=== PATIENT | male | born 1950 | race Caucasian/White ===

== ENCOUNTER 2019-11-18 07:09 | Outpatient (NON) | payer MEDICARE, SELFPAY ==
[2019-11-18 19:16] LABS: SARS-CoV-2 RNA PCR Negative
== END 2019-11-18 07:10 ==
PROVIDERS: PCP Internal Medicine; Visit Provider Internal Medicine
DX: R68.89 Other general symptoms and signs (principal); Z20.828 Contact with and (suspected) exposure to other viral communicable diseases
CPT/HCPCS: 87635; C9803; U0003

== ENCOUNTER 2020-03-15 11:22 | Observation (INO) | payer MEDICARE, SELFPAY ==
[2020-03-15] VITALS (25 sets, daily range): BP systolic 134–173; BP diastolic 78–119; PULSE 60–106; RESP 10–19; TEMP 36.6–36.8; O2SAT 97–100; BMI 26.6
--- NOTE | ~2020-03-15 | CT_ITS ---
EXAMINATION: CTA brain carotid EXAM DATE: 03/15/2020 13:29 INDICATION: Dizziness . Difficult to moderate. TECHNIQUE: Noncontrast head CT. Spiral CTA of the carotid arteries was performed with intravenous i njection 100 cc of Omnipaque 350. Axial, coronal, sagittal reformatted images reviewed. Additional r eformatted images created on dedicated 3-D workstation. NASCET comparable standard used to assess th e degree of arterial stenosis. Spiral CT angiogram cerebral arteries performed with the same intrave nous injection of contrast. Source images of the brain CTA transferred to dedicated workstation for 3 -D rotational image creation. Coronal, sagittal maximum intensity pixel images also reviewed. The d ose-length product (DLP) for this examination was 1862.54 mGy-cm. The exposure was tailored accordi ng to patient size, and iterative reconstruction (ASIR) was used as additional dose reduction techniq ue. There is no prior study for comparison. FINDINGS: There is a small saccular aneurysm along the anterior aspect of the ascending aorta measuri ng 9 mm. Moderate right carotid bulb plaque accommodated by its natural dilation, 0% stenosis. On the left there is large amount of predominantly noncalcified left carotid bulb, 40% stenosis. The verteb ral arteries are codominant. There is right-sided posterior communicating artery dominant posterior c erebral artery. There is no carotid or vertebral basilar arterial dissection or fibromuscular dyspl sree. There are no cerebral artery aneurysms. There is symmetric cerebral artery arborization. The sa gittal, transverse and sigmoid sinuses enhance normally, no venous sinus thrombosis. Internal cerebra l veins also enhance normally. There is old left basal ganglia lacunar infarction. There is no acute intraparenchymal hemorrhage. No evidence of intraparenchymal brain mass lesion. No evidence of acute infarction. There is moderat e periventricular and subcortical hypodensity, nonspecific but probably related to small vessel ische temo disease. There is mild prominence of the sulci and ventricles related to cerebral atrophy. Th ere is intracranial carotid arteriosclerosis. There is no mass effect or midline shift. There is no obstructive hydrocephalus suspected. There are no extra-axial collections. There are no calvarial acute fractures. There is 9 mm right thyroid lobe nodule. Mid cervical disc disease. Sternotomy wires. IMPRESSION: 1. Ascending aortic saccular 9 mm aneurysm. 2. Left carotid bulb 40% stenosis. No right carotid stenosis. 3. Old left basal ganglia lacunar infarction. 4. Age-related intracranial findings. Reviewed, dictated and finalized at location B. O MACHINE OPERATOR
--- NOTE | ~2020-03-15 | XR_ITS ---
EXAMINATION: XR chest 1V portable DATE: 03/15/2020 12:08 INDICATION: Weakness. TECHNIQUE: frontal view of the chest was obtained. COMPARISON: Chest CT dated 03/30/2017 and chest radiograph dated 09/14/2012 FINDINGS: The lungs remain clear with no focal airspace opacities, pulmonary edema, pleural effusion or pneumot horax. The cardiomediastinal silhouette is normal. Median sternotomy wires and mediastinal surgical c lips are seen, likely from prior coronary artery bypass grafting. IMPRESSION: 1. No acute cardiopulmonary disease. Reviewed, dictated and finalized at location A. US RECRUITER
--- NOTE | ~2020-03-15 | CT_ITS ---
EXAMINATION: CT cervical spine [facility] EXAM DATE: 03/17/2020 15:01 INDICATION: neurological symptoms. TECHNIQUE: Spiral CT of the cervical spine was performed without contrast. Axial images were reviewe d. Coronal and sagittal reformatted images were also reviewed. The dose-length product (DLP) for thi s examination was 413.44 mGy-cm. The exposure was tailored according to patient size (auto mA exposu re control), and iterative reconstruction (ASIR) was used as additional dose reduction technique. ere is no prior study for comparison. FINDINGS: There is moderate to severe disc disease C4-7. The vertebral bodies are aligned in the AP dimension. There are no acute fractures identified. The odontoid process is intact. The lateral mass es of C1 line up with C2. Prevertebral soft tissue and pre-dens space are within normal limits. Level by level evaluation: C2-C3: Disc does not extend beyond the endplate margin. Uncovertebral joint arthropathy: None. Facet joint arthropathy: Mild bilateral. Neural foraminal stenosis: No stenosis. Central canal stenosis: No stenosis. C3-C4: There is a mild diffuse disc bulge. Uncovertebral joint arthropathy: Mild bilateral. Facet joint arthropathy: Moderate left, mild right. Neural foraminal stenosis: Mild left. Central canal stenosis: No stenosis. C4-C5: There is mild disc osteophyte complex. Uncovertebral joint arthropathy: Moderate bilateral. Facet joint arthropathy: Moderate left, mild to moderate right. Neural foraminal stenosis: Mild to moderate bilateral. Central canal stenosis: Mild. C5-C6: There is mild to moderate disc osteophyte complex. Uncovertebral joint arthropathy: Moderate to severe bilateral. Facet joint arthropathy: Mild bilateral. Neural foraminal stenosis: Moderate to severe left, moderate right. Central canal stenosis: Mild. C6-C7: There is mild disc osteophyte complex. Uncovertebral joint arthropathy: Severe left, moderate to severe right. Facet joint arthropathy: Mild bilateral. Neural foraminal stenosis: Severe left. Central canal stenosis: Mild. C7-T1: Disc does not extend beyond the endplate margin. Uncovertebral joint arthropathy: None. Facet joint arthropathy: Mild to moderate right, mild left. Neural foraminal stenosis: No stenosis. Central canal stenosis: No stenosis. IMPRESSION: 1. Moderate to severe cervical spondylosis. 2. No acute findings. Reviewed, dictated and finalized at location B. GRINDER
--- NOTE | 2020-03-15 11:39 | ECG_ITS ---
Measurements Intervals [place] Rate: 68 P: -6 NM: 154 QRS: 118 QRSD: 96 T: 156 QT: 415 QTc: 441 Interpretive Statements SINUS RHYTHM POSSIBLE LEFT ATRIAL ENLARGEMENT NONSPECIFIC T-WAVE ABNORMALITY- ANTEROLAT/HIGH LAT LEADS BASELINE ARTIFACT- I, II, III BORDERLINE ECG Electronically Signed On 03-15-2020 12:08:46 ACCOUNTANT TAX by Gary Peoples D.O.
[2020-03-15 11:52] LABS: Basophils Absolute Auto 0.1 K/mm3 (0.0-0.1); Basophils Percent Auto 0.8 % (0.2-1.2); Eosinophils Absolute Auto 0.1 K/mm3 (0-0.3); Eosinophils Percent Auto 1.5 % (0-4.4); Hematocrit 43.8 % (42.0-52.0); Hemoglobin 14.9 g/dL (14.0-18.0); Immature Granulocyte Absolute 0.03 K/mm3 (0.00-0.031); Immature Granulocyte Percent A 0.3 % (0-0.5); Lymphocytes Absolute Auto 1.72 K/mm3 (0.9-3.2); Lymphocytes Percent Auto 18.6 % (18.3-44.2); Mean Corpuscular Hemoglobin 31.3 pg (26-34); Mean Platelet Volume 8.6 fl (7.4-10.4); Monocytes Absolute Auto 0.8 K/mm3 (0.1-0.6); Monocytes Percent Auto 9.1 % (2.6-8.5); Neutrophils Absolute Auto 6.4 K/mm3 (1.3-6.7); Neutrophils Percent Auto 69.7 % (45.5-73.1); Platelet Count Result 219 k/mm3 (150-375); Red Blood Count 4.76 M/mm3 (4.6-6.20); Red Cell Distribution Width 13.9 % (11.5-14.5); White Blood Count 9.2 K/mm3 (4.5-10.0)
[2020-03-15 12:03] LABS: INR 0.9; Partial Thromboplastin Time 25.1 SECONDS (22.3-36.8); Prothrombin Time 13.1 Seconds (11.1-14.7)
[2020-03-15 12:04] LABS: Glucose Point of Care 85 (65-105)
[2020-03-15 12:56] LABS: Anion Gap 7 mmol/L (8-16); Blood Urea Nitrogen 15 mg/dL (9-20); Carbon Dioxide 27 mmol/L (22-30); Chloride 103 mmol/L (98-107); Estimated CRCL calculation 59 ml/min; Estimated Glomerular Filt Rate > 60; Glucose 99 mg/dL (75-110); Potassium 4.1 mmol/L (3.4-5.0); Sodium 137 mmol/L (137-145)
--- NOTE | 2020-03-15 12:59 | ED.GENADULT ---
HPI - General Adult General Chief complaint: Unspecified Stated complaint: issues with blood pressure medications Time Seen by Provider: 03/15/20 12:09 Source: patient History of Present Illness HPI narrative: Patient is a 70 y/o male complaining of moderate dizziness, unsteady gait since sometime yesterday. There is no alleviating or exacerbating factor. He feels weak in general, but he denies any focal weakness or numbness. He noticed his BP has been high. He states that he had bypass surgery done at [facility] over 10 years ago. Related Data Home Medications Medication Instructions Recorded Confirmed amlodipine 10 mg DAILY 03/15/20 03/15/20 benzonatate 100 mg PO DAILY 03/15/20 03/15/20 hydrochlorothiazide 12.5 mg DAILY 03/15/20 03/15/20 lisinopril 20 mg DAILY 03/15/20 03/15/20 metoprolol succinate 25 mg PO DAILY 03/15/20 03/15/20 Allergies Allergy/AdvReac Type Severity Reaction Status Date / Time No Known Allergies Allergy Unverified 11/06/14 14:26 Review of Systems Constitutional: Constitutional: Denies chills, Denies fever(s), Denies headache(s) and Denies weakness Eyes: Eyes: Denies blurry vision ENT: Denies headache(s) and Denies neck pain Cardiovascular: Cardiovascular: Denies chest pain and Denies dyspnea Respiratory: Respiratory: Denies cough and Denies dyspnea Gastrointestinal: Gastrointestinal: Denies abdominal pain, Denies diarrhea, Denies nausea and Denies vomiting Genitourinary: Genitourinary: Denies hematuria and Denies dysuria Musculoskeletal: Musculoskeletal: Denies back pain and Denies neck pain Neurologic: Reports dizziness, Denies headache(s), Reports lack of coordination, Denies focal weakness and Reports weakness PMFSH Social History Social History Smoking packs per day: 0.5 Smoking cigarettes per day: 10.0 Smoking status: Current every day smoker Tobacco type: cigarettes Alcohol intake: current Drinks per week: 1 Substance use: never Gender identity (if verbalized by the patient): Male Sexual Orientation (if Verbalized by the Patient): Straight or Heterosexual Spiritual care concerns: No Exam Const: General: no acute distress and well developed Orientation/consciousness: oriented to person, oriented to place, oriented to time and patient oriented x3 HENMT: Head: normocephalic Ears: external ears normal General nose exam: Normal external nose present Eyes: General: appearance normal, both eyes and all related structures Conjunctivae: conjunctivae normal Neck: Neck: normal visual inspection and full ROM Chest: Chest palpation & inspection: normal inspection of the chest and no tenderness Resp: Effort & Inspection: normal respiratory effort Auscultation: clear to auscultation bilaterally Cardio: Rate: regular rate Rhythm: regular rhythm GI: GI Palp: No abdominal tenderness and Yes Soft to palpation Skin: General skin exam: normal color and turgor normal Neuro: General: oriented to person, oriented to place, oriented to time and patient oriented x3 Cranial nerves: Yes CN's II-XII intact bilaterally Cognition (Neuro): normal cognition Speech: normal speech Motor exam (neuro): 5/5 motor strength present throughout Sensory Exam: normal sensation Coordination: cztqfc-tc-aenb test normal and idxy-oc-cdal test normal Extrem: General: normal to inspection, full ROM and no pedal edema Psych: Appearance: grossly normal Mental Status: mental status grossly normal Affect: normal affect Course Reevaluation(s) Reevaluation #1: Rechecked. Patient still feels dizzy. He states that he lives by himself and does not feel ready to go home. Date: 03/15/20 Time: 16:20 Consultations Consultation #1: Discussed with Dr. Infante (cardiothoracic surgery at [facility]), who states that aortic aneurysm is likely related to aortic cannulation during CABG surgery. He states that patient does not require transfer for that, but can fol
[2020-03-15 13:07] LABS: Troponin I 0.013 ng/mL (0.000-0.034)
--- NOTE | 2020-03-15 13:30 | PC.NURSE ---
patient in CT now.
--- NOTE | 2020-03-15 14:03 | PC.NURSE ---
patient back from CT. no change in condition. alert. oriented. on monitor. call light in reach.
[2020-03-15] MEDS: ASPIRIN 81 MG CHEWABLE TABLET PO (16:45)
[2020-03-15] MEDS: cloNIDine HCL 0.1 MG TABLET PO (17:04)
--- NOTE | 2020-03-15 17:06 | PC.NURSE ---
patient medicated as ordered. will order dinner tray. has ice water. has new urinal at bedside. patient aware of plan for admission upstairs.
--- NOTE | 2020-03-15 17:25 | PC.NURSE ---
patient medicated as ordered. patient given urinal. then with call light on. assisted to sit in chair at bedside. bed changed. tray ordered for patient. waiting for bed assignment.
--- NOTE | 2020-03-15 17:48 | PC.NURSE ---
SBAR completed and faxed and tubed to 3rd floor.
--- NOTE | 2020-03-15 18:07 | PC.NURSE ---
report received from Kathia DAVE
--- NOTE | 2020-03-15 18:11 | PC.NURSE ---
report given to RN on 2nd floor. will transfer to 341 shortly.
--- NOTE | 2020-03-15 18:47 | ADMGEN ---
This patient, Jessa Goetz, was admitted to Medical Room 341-01. Patient/family oriented to hospital policies and general routines including ID bracelet, bed and alarms, visiting hours, pain management, procedures, bathroom and other care routines, personal items, smoking policy, room service/diet, and visiting hours. Placed on tele per MD orders, reviewed plan of care. Information on how to activate the Rapid Response Team has been discussed. Patient/Family are encouraged to report perceived risks to care and to ask questions if they do not understand what they are told or what they should do.
[2020-03-15 20:09] LABS: Glucose Point of Care 142 (65-105)
--- NOTE | 2020-03-15 20:13 | PC.NURSE ---
call to [facility] in [place] [address] to confirm home meds
--- NOTE | 2020-03-15 22:45 | PM.IMHP ---
H&P: HPI History of Present Illness Date/Time: 03/15/20 22:45 Chief complaint: Neurological symptoms. Narrative: Jessa Goetz is a 70-year-old male with coronary artery disease, peripheral vascular disease, hypertension, hyperlipidemia, and history of moderate aortic stenosis on echocardiogram in March 2017 who presented to the emergency department earlier today via private vehicle from home for evaluation of neurological symptoms. He is not very good historian and has a difficult time describing the symptoms which prompted him to come to the emergency department today, but it sounds like he was in his usual state of health on Sunday evening. When he awoke on Sunday morning he was just not feeling right, with generalized weakness to the point where I could hardly move. For some reason he thought perhaps he was having a reaction to 1 of his blood pressure medications, but he goes on to say that he has not been prescribed any new medications recently, perhaps 3 months ago or so. He denies that he could have accidentally taken extra medication, and he states compliance with his medication however I am wondering if that is true or not. In any regard, it seems like he felt unwell most of the weekend, but he was able to drive back to [place] (he lives in [place]) for work. With further questioning he reports feelings of being off balance, but specifically denies feeling lightheaded and he also tells me he is not having vertigo. Due to the poor balance, he sustained a fall on Sunday morning in the bathroom, but he landed on his buttocks and did not injure himself. I asked him to describe his walk however he tells me he has not really walked today thus he cannot say for certain. He got up to the side of the bed to use the urinal and was steady at that time, but did not wish to walk. He reported to the triage nurse that he was having difficulties writing however denied that to me at this time. Brain CT today showed evidence of an old stroke, of which he was unaware. Currently he feels back to his normal state and specifically denies headache, neck ache, auditory and visual changes, focal weakness, paresthesias, facial droop, and dysarthria. He has no history of cardiac dysrhythmia. Review of Systems Review of Systems: Narrative: Twelve systems were reviewed with pertinent positives and negatives as per HPI. No fever, chills, or sweats. He goes on to say that he was having subjective fevers and muscle aches from a blood pressure medication that he was prescribed a couple of months ago, and his doctor told him to just take half dose but he still has some symptoms of that. He denies cold and flu symptoms. No exposure to those positive for COVID-19. He denies sick contacts. No chest pain, pleuritic pain, palpitations, or shortness of breath. No cough. He denies diarrhea and constipation. No dysuria or hematuria. He does have sleep apnea but is intolerant to the CPAP. He admits that he will sometimes wake up at night gasping for air and reports daytime somnolence. Except as documented, all other systems were reviewed and are negative. ON LICENSE OF [facility] Past Medical History Medical History (Updated 03/16/20 @ 00:00 by Zina Alvares PA-C) Ascending aortic aneurysm 9 mm ascending aortic saccular aneurysm noted on CT dated 03/15/2020. His cardiothoracic surgeon feels that it was likely related to cannulation of the aorta during bypass. Cerebrovascular accident Old left basal ganglia lacunar infarction noted on brain CT dated 03/15/2020. Colon polyps Coronary artery disease Status post 5 vessel bypass at [facility] in [place]. Grade II diastolic dysfunction On echocardiogram in March 2017. Hyperlipidemia Hypertension Kidney stones Moderate aortic stenosis Noted on echocardiogram in March 2017. Obstructive sleep apnea Intolerant to CPAP. Peripheral vascular disease Prostate cancer Status post prostatectomy. Tobacco dependence Surgical
[2020-03-16] VITALS (14 sets, daily range): BP systolic 119–157; BP diastolic 75–97; PULSE 58–71; RESP 12–18; TEMP 36.2–36.8; O2SAT 95–99
--- NOTE | 2020-03-16 00:02 | ECHO_ITS ---
Patient Info Name: Jessa Goetz Age: 70 years : 1950 Gender: Male Ht: 71 in Wt: 191 lbs BSA: 2.10 m2 HR: 62 bpm BP: 149 / 92 mmHg Heart Rhythm: Sinus Rhythm Technical Quality: Good Exam Date: 03/16/2020 9:37 AM Exam Location: [facility] Patient Status: Inpatient Admit Date: 03/15/2020 Staff Ordering Physician: Zina Alvares PA-C Mercury Purifier: Cecil Hale RDCS Attending Provider: Martha Maynard PA-C Referring Physician: Dia SAHU; Exam Type: CA echo dop color flow w con Study Info Indications I35.0 - Nonrheumatic aortic (valve) stenosis Complete two-dimensional, color flow and Doppler transthoracic echocardiogram is performed with contrast to opacify the left ventricle and to improve the deliniation of the left ventricle endocardial borders. Contrast/Agitated Saline Contrast/Ag. Saline: Definity Amount: 3.00 ml Administered By: Gaye Hayden RN Existing IV Access: Yes History/Risk Factors Neurological symptoms; aortic stenosis, murmur, HTN, CAD s/p 5v CABG \R\12 years ago. Summary 1. Left ventricular chamber dimension is normal. 2. Definity contrast administered improved wall motion interpretation. 3. Left ventricular systolic function is normal, estimated at 55-60%. 4. There is mildly increased left ventricular wall thickness. 5. The left ventricular diastolic function is grade I diastolic dysfunction. 6. E/e' 11 is mildly elevated. 7. Left atrial chamber dimension is moderately enlarged. 8. There is severe aortic valve sclerosis. 9. There is severe aortic valve stenosis with a peak velocity of 484.60 cm/s, mean gradient of 44 mmHg, and aortic valve area of 0.61 cm2. 10. There is mild aortic valve regurgitation. 11. The mitral valve has severely calcified annulus. Left Ventricle E/e' 11 is mildly elevated. Definity contrast administered improved wall motion interpretation. Left ventricular chamber dimension is normal. Left ventricular systolic function is normal, estimated at 55-60%. There is mildly increased left ventricular wall thickness. The left ventricular diastolic function is grade I diastolic dysfunction. Right Ventricle Right ventricular chamber dimension is normal. Right ventricular systolic function is normal. Left Atria Left atrial chamber dimension is moderately enlarged. Right Atria Right atrial chamber dimension is normal. Aortic Valve The aortic valve is probable trileaflet. There is severe aortic valve sclerosis. There is severe aortic valve stenosis with a peak velocity of 484.60 cm/s, mean gradient of 44 mmHg, and aortic valve area of 0.61 cm2. There is mild aortic valve regurgitation. Pulmonic Valve There is no pulmonic regurgitation. Mitral Valve The mitral valve has severely calcified annulus. There is no mitral valve stenosis. There is no mitral valve regurgitation. Tricuspid Valve There is no tricuspid valve regurgitation. Pericardium/Pleural There is no pericardial effusion. Inferior Vena Cava Normal inferior vena cava with >50% collapse upon inspiration consistent with normal right atrial pressure, 5 mmHg. Aorta The aortic root size at the sinus of Valsalva is normal. Left Ventricular Outflow Tract Name Value Normal
[2020-03-16 05:56] LABS: Hemoglobin 13.5 g/dL (14.0-18.0); Mean Corpuscular HGB Conc 33.8 g/dl (32-36); Mean Corpuscular Hemoglobin 30.3 pg (26-34); Mean Corpuscular Volume 89.7 fl (80-100); Platelet Count Result 210 k/mm3 (150-375); Red Blood Count 4.46 M/mm3 (4.6-6.20); Red Cell Distribution Width 13.5 % (11.5-14.5); White Blood Count 7.4 K/mm3 (4.5-10.0)
[2020-03-16 06:24] LABS: Alanine Aminotransferase 12 U/L (4-50); Albumin Level 3.6 g/dL (3.5-5.1); Alkaline Phosphatase 51 U/L (38-126); Anion Gap 5 mmol/L (8-16); Aspartate Amino Transferase 22 U/L (17-59); Bilirubin,Total 0.8 mg/dL (0.2-1.3); Blood Urea Nitrogen 16 mg/dL (9-20); Calcium 8.6 mg/dL (8.4-10.2); Carbon Dioxide 27 mmol/L (22-30); Chloride 106 mmol/L (98-107); Cholesterol 261 mg/dL (0-200); Estimated CRCL calculation 59 ml/min; Estimated Glomerular Filt Rate > 60; Glucose 97 mg/dL (75-110); HDL Direct 46 mg/dL; Magnesium 2.3 mg/dL (1.6-2.3); Potassium 3.7 mmol/L (3.4-5.0); Sodium 138 mmol/L (137-145); Triglycerides 160 mg/dL (<150)
[2020-03-16 06:35] LABS: LDL Cholesterol Direct 165 mg/dL
[2020-03-16 07:28] LABS: Folic Acid 9.5 ng/mL (2.76->20)
[2020-03-16] MEDS: CYANOCOBALAMIN INJ 1,000 MCG/ML VIAL 1000 MCG IM (08:49)
[2020-03-16] MEDS: METOPROLOL SUCCINATE EXT REL 25 MG TABCR PO (08:50)
[2020-03-16] MEDS: ASPIRIN 81 MG ENTERIC TABLET PO (08:50)
[2020-03-16] MEDS: amLODIPine BESYLATE 5 MG TABLET 10 MG PO (08:50)
[2020-03-16] MEDS: hydroCHLOROthiazide 12.5 MG CAPSULE BY MOUTH (08:50)
[2020-03-16] MEDS: lisinopriL 20 MG TABLET PO (08:50)
[2020-03-16] MEDS: ATORVASTATIN 40 MG TABLET PO (08:51)
[2020-03-16] MEDS: PERFLUTREN LIPID MICROSPHERES 1.5 ML VIAL DILUTED TO 10 ML TOTAL VOLUME IV PUSH (10:00)
--- NOTE | 2020-03-16 10:58 | PM.IMPN ---
Progress Note: A&P Assessment and Plan (1) Neurological symptoms: Code(s): R29.90 - Unspecified symptoms and signs involving the nervous system Status: Acute Assessment and Plan: Etiology is unclear. His symptoms were poorly described but he noted feeling off balance. Orthostatic vitals were negative for orthostatic hypotension. CTA head/neck showed an old left basal ganglia lacunar infarction without evidence of acute hemorrhage, mass lesion, or infarction. There is 40% left ICA stenosis and no right carotid stenosis. Echocardiogram shows normal LV systolic function, mildly increased LV wall thickness, grade 1 diastolic dysfunction, moderate left atrial enlargement, and severe aortic stenosis and sclerosis. The patient reports that his symptoms have resolved completely and he is no longer feeling off balance. He thinks his symptoms were an adverse reaction to his antihypertensives. Brain MRI is still pending due to his hx of femoral to femoral bypass. Records were requested from [facility] and further information regarding the bypass is needed. Continue ASA. Neurology was consulted. Appreciate neurology input. Plan for PT/OT evaluation. (2) Aortic stenosis: Code(s): I35.0 - Nonrheumatic aortic (valve) stenosis Status: Acute Assessment and Plan: Severe on echocardiogram performed 03/16/20 with peak velocity of 484.60cm/s, mean gradient of 44 mmHg, and aortic valve area of 0.61 cm2. He states that he is not currently established with cardiology. He did have CABG at [facility] at least 10 years ago but states he is not following with cardiology regularly. Plan to consult cardiology for further input which is greatly appreciated. Await cardiology recommendations. (3) Hypertension: Qualifiers: Hypertension type: unspecified Qualified Code(s): I10 - Essential (primary) hypertension Code(s): I10 - Essential (primary) hypertension Status: Acute Assessment and Plan: Blood pressures were elevated initially but have subsequently normalized. Most recent BP was 140/89. Continue prior to admission amlodipine. He stated that he was not taking his hydrochlorothiazide, metoprolol, and lisinopril. Continue to monitor. (4) Ascending aortic aneurysm: Code(s): I71.2 - Thoracic aortic aneurysm, without rupture Status: Acute Assessment and Plan: The patient's cardiothoracic surgeon, Dr. Nicole from [facility], stated that the ascending aortic saccular 9 mm aneurysm was likely due to aortic cannulation during CABG and recommends outpatient follow-up. He will need to establish an outpatient appointment after discharge. (5) Obstructive sleep apnea: Code(s): G47.33 - Obstructive sleep apnea (adult) (pediatric) Status: Chronic Assessment and Plan: Chronic. CPAP will be available for titration to home settings while inpatient. (6) Coronary artery disease: Code(s): I25.10 - Atherosclerotic heart disease of [place] coronary artery without angina pectoris Status: Chronic Assessment and Plan: Chronic. The patient is not having angina. Continue ASA, crestor,and metoprolol. (7) Tobacco dependence: Code(s): F17.200 - Nicotine dependence, unspecified, uncomplicated Status: Chronic Assessment and Plan: I discussed the importance of smoking cessation with the patient at length today. He verbalized understanding regarding the importance of smoking cessation given his hx of atherosclerotic vascular disease and risk for adverse cardiovascular outcomes including . Subjective Date/time seen: 03/16/20 10:58 Mr. Goetz is a 70 y.o. male with PMH significant for CAD s/p CABG, ascending aortic aneurysm, CVA, HLD, HTN, aortic stenosis, THOMPSON, and current tobacco dependence who is seen in follow-up for poorly described neurological symptoms including feeling off balance resulting in a subsequent fall Sunday morning. His
--- NOTE | 2020-03-16 11:45 | WPDNEURCNPN ---
Assessment and Plan Assessment and plan (1) Aortic stenosis: Code(s): I35.0 - Nonrheumatic aortic (valve) stenosis Status: Acute (2) Neurological symptoms: Code(s): R29.90 - Unspecified symptoms and signs involving the nervous system Status: Acute (3) Ascending aortic aneurysm: Code(s): I71.2 - Thoracic aortic aneurysm, without rupture Status: Acute (4) Gait instability: Code(s): R26.81 - Unsteadiness on feet Status: Acute Additional Plan CTA is negative for the carotid disease except the documentation of the ascending aortic saccular aneurysm would recommend to obtain the physical therapy evaluation Consult date: 03/17/20 Time Seen: 11:45 HPI: Jessa Goetz is a 70 year old male 70 years old right-handed male has been admitted to [facility] through the emergency room where he was brought by the private vehicle from home for the evaluation of neurological symptoms he was not very good historian and had difficult time describing the symptom which prompted him to come to the emergency room. As per the information available when he woke on Sunday morning he was just not feeling right felt weak was difficult to move he was not given any new medications but was not sure whether he had taken extra medication he was off balance lightheaded and vertiginous ears landed on his buttocks because of the lack of balance a day before but by the time he was seen by the physician on the floor he was feeling better he has ongoing history of ascending aortic aneurysm cerebrovascular accident with involvement of the left basal ganglia on CT scan in March of 2020 moderate aortic stenosis obstructive sleep apnea and peripheral vascular disease Review of Systems Review of Systems: All systems reviewed & are unremarkable except as noted in HPI and below [facility] Past Medical History Medical History Ascending aortic aneurysm 9 mm ascending aortic saccular aneurysm noted on CT dated 03/15/2020. His cardiothoracic surgeon feels that it was likely related to cannulation of the aorta during bypass. Cerebrovascular accident Old left basal ganglia lacunar infarction noted on brain CT dated 03/15/2020. Colon polyps Coronary artery disease Status post 5 vessel bypass at [facility] in [place]. Grade II diastolic dysfunction On echocardiogram in March 2017. Hyperlipidemia Hypertension Kidney stones Moderate aortic stenosis Noted on echocardiogram in March 2017. Obstructive sleep apnea Intolerant to CPAP. Peripheral vascular disease Prostate cancer Status post prostatectomy. Tobacco dependence Surgical History Surgical History (System 03/16/20 @ 12:47 by Ellyn Leonardo) History of coronary artery bypass graft Five vessel bypass. History of lithotripsy History of prostatectomy History of tonsillectomy History of vascular surgery Femoral bypass. Family History Family History Father Cerebrovascular accident Heart disease Mother Cancer of female genitourinary tract Mother Family history of malignant neoplasm of uterus Other Family history of cardiovascular disease Social History Social History Smoking packs per day: 0.5 Smoking cigarettes per day: 10.0 Smoking status: Current every day smoker Tobacco type: cigarettes Alcohol intake: current Drinks per week: 1 Substance use: never Gender identity (if verbalized by the patient): Male Sexual Orientation (if Verbalized by the Patient): Straight or Heterosexual Spiritual care concerns: No Meds Home Medications and Allergies Home Medications Medication Instructions Recorded Confirmed Type rosuvastatin 20 mg tablet 20 mg PO DAILY #30 tablet 09/09/19 03/17/20 Rx aspirin 81 mg tablet,delayed 81 mg PO DAILY #30 tablet 12/18/19 03/17/20 Rx releas
--- NOTE | 2020-03-16 16:58 | PC.NURSE ---
Received records from [facility] in regards to the operative note for the femoral bypass. There was not enough information about the graft for them to do the MRI. [facility] records was paged to try to get more info, Ivanna AGUILAR notified.
[2020-03-17] VITALS (9 sets, daily range): BP systolic 127–162; BP diastolic 77–94; PULSE 64–72; RESP 15–16; TEMP 36.2; O2SAT 97–98
[2020-03-17] MEDS: amLODIPine BESYLATE 5 MG TABLET 10 MG PO (09:11)
[2020-03-17] MEDS: ROSUVASTATIN 10 MG TABLET 20 MG PO (09:12)
[2020-03-17] MEDS: ASPIRIN 81 MG ENTERIC TABLET PO (09:12)
--- NOTE | 2020-03-17 10:21 | PM.CNCAR ---
Assessment and Plan Assessment and plan (1) Coronary artery disease: Code(s): I25.10 - Atherosclerotic heart disease of [place] coronary artery without angina pectoris Status: Chronic Assessment and Plan: five-vessel CABG. Unknown details. Continue aspirin, rosuvastatin. will start metoprolol tartrate 25 mg p.o. b.i.d.. Hold hydrochlorothiazide. Reduce amlodipine to 5 mg daily. No diuretics. (2) Ascending aortic aneurysm: Code(s): I71.2 - Thoracic aortic aneurysm, without rupture Status: Acute Assessment and Plan: 9 mm saccular aneurysm (3) Aortic stenosis: Code(s): I35.0 - Nonrheumatic aortic (valve) stenosis Status: Acute Assessment and Plan: critical. No diuretics. He is instructed not to lift any heavy objects or perform any exercise for the time being. He is encouraged to stay hydrated. He needs workup for aortic valve replacement. I talked him about the process and potential for TAVR versus SAVR. He wishes not to have cardiac workup performed here. When given options, he is agreeable to see physicians at [facility]. Will refer him to Dr. Collins and Shannan. will schedule him a left and right heart catheterization was [facility]. Will also need a transesophageal echocardiogram, CT scan chest as part of standard workup. (4) Essential hypertension: Code(s): I10 - Essential (primary) hypertension Status: Acute Assessment and Plan: above goal (5) Tobacco abuse: Code(s): Z72.0 - Tobacco use Status: Acute Assessment and Plan: smoking cessation counseling was performed (6) Obstructive sleep apnea: Code(s): G47.33 - Obstructive sleep apnea (adult) (pediatric) Status: Chronic Assessment and Plan: intolerant to CPAP (7) Hyperlipidemia: Code(s): E78.5 - Hyperlipidemia, unspecified Status: Acute Assessment and Plan: Continue rosuvastatin (8) Neurological symptoms: Code(s): R29.90 - Unspecified symptoms and signs involving the nervous system Status: Acute Assessment and Plan: this could be related to hypotension related to his severe/ critical aortic stenosis. History of Present Illness History of Present Illness Consult date/time: 03/17/20 10:21 Requesting physician: Asaturian,Martha E., PA-C Consult reason: aortic stenosis Reason For Visit: Neurological symptoms. Narrative: date of service 03/17/2020 Reason for consultation: Aortic stenosis History: Patient is a 70-year-old male with history of coronary disease and underwent a multivessel CABG about 10-12 years ago at [facility]. He had seen Dr. Reyes at that time but has not been seen by cycling instructor routinely since his departure. Patient does have a known history of aortic stenosis. He has not had any significant cardiac evaluation though and 3+ years. He came to hospital because of a state of altered mental status. He took his standard pills Sunday night and then woke up Sunday not feeling very well. He states that he could not walk, felt confused and lethargic. This persisted all weekend. He had no focal abnormalities except for some slurred speech. He did have some loss of balance. This occurred after he stood up and this did prompt him to go to the emergency department for further evaluation. He did have a CT scan of brain which showed an old infarction but nothing new. He was also found to have a saccular aneurysm in his thoracic aorta. Echocardiogram was ordered because of a very loud harsh murmur as well as his symptoms. Echocardiogram showed critical aortic stenosis with valve area 0.6 centimeter squared. consultation was therefore requested. Patient denies any chest pain, shortness of breath, syncope, paroxysmal nocturnal dyspnea, orthopnea or palpitations. No significant edema. Review of Systems Review of Systems: All systems reviewed & are unremarkable except as n
[2020-03-17] MEDS: METOPROLOL TARTRATE 25 MG TABLET PO (12:10)
--- NOTE | 2020-03-17 14:26 | PM.DS ---
DS: Admitting Diagnosis Admitting Diagnosis Admitting Diagnosis: Neurological symptoms. DS: Discharge Diagnosis Discharge Diagnosis (1) Neurological symptoms: Code(s): R29.90 - Unspecified symptoms and signs involving the nervous system Status: Acute Assessment and Plan: Discharge Summary (Date of service 03/17/20): Mr. Goetz is a 70 y.o. male with PMH significant for hypertension, CAD s/p five-vessel CABG at [facility] [place] at least 10 years ago, aortic stenosis, THOMPSON, hyperlipidemia, and tobacco dependence who presented to the emergency department for vague neurological symptoms including generalized weakness and feeling off balance. On arrival, blood pressure was elevated. Vitals were otherwise stable. Initial workup in the emergency department included CT brain which showed old left basal ganglia lacunar infarction, CTA head/neck which showed ascending aortic saccular 9mm aneurysm, 40% stenosis of the left carotid and no significant right carotid stenosis. Labs were unremarkable. He was admitted for further workup due to concern for possible CVA/TIA. Dr. Arango with neurology was consulted. MRI was ordered but was not able to be performed at our facility due to the presence of a peripheral bypass graft. The surgery was performed at [facility] and records were requested but we were unable to obtain information on the exact type of graft used, thus he could not have MRI here. Dr. Arango was advised and noted that he was okay for him not to have the MRI at this time. He will need to follow-up with neurology outpatient to determine if further imaging will be warranted. He had no residual deficits and his symptoms resolved completely. He was not taking his rosuvastatin so I advised that he must take this and his ASA as his CT brain did show an old lacunar infarction in the basal ganglia which he was unaware of. Neurology recommend CT cervical spine which showed moderate to severe cervical spondylosis. Echocardiogram was performed and showed normal LV systolic function, mildly increased LV wall thickness, grade 1 diastolic dysfunction, moderate left atrial enlargement, and severe aortic stenosis and sclerosis. It is possible that his severe aortic stenosis may have caused hypotension which resulted in his symptoms of generalized weakness and feeling off balance. Physical and occupational therapy evaluated the patient and he was felt to be functioning well at baseline with no need for continued PT/OT. He was advised that he will require aortic valve replacement and he was referred to [facility] by our cardiology team to have the standard workup and valve replacement. His blood pressure medications were adjusted and diuretics must be avoided. He was placed on activity restrictions. He was discharged in stable condition on the afternoon of 03/18/20. (2) Aortic stenosis: Code(s): I35.0 - Nonrheumatic aortic (valve) stenosis Status: Acute Assessment and Plan: Severe on echocardiogram performed 03/16/20 with peak velocity of 484.60cm/s, mean gradient of 44 mmHg, and aortic valve area of 0.61 cm2. He was seen by cardiology. He will need aortic valve replacement and he wanted to pursue cardiac workup at [facility] after discussion with Dr. Sorensen. He will need a left and right heart catheterization, KEESHA, and CT chest for the standard workup and he was referred to Dr. Collins and Shannan to have this accomplished. He was advised to call Dr. Sorensen's office if he does not hear from [facility] by 03/25/20. He verbalized understanding with the importance of follow-up. He was advised that he cannot perform any heavy lifting or strenuous activity. 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 He was provided a work note with his activity restrictions. (3) Hypertension: Qualifiers: Hypertension type: unspecified Qualified Code(s): I10 - Essential (primary) hypertension Code(s): I10 -
--- NOTE | 2020-03-17 15:47 | PC.NURSE ---
Ivanna Maynard notified that pt was diving himself home. Ivanna was okay with this and stated to reinforce no strenuous activity.
== END 2020-03-17 15:45 | disposition home or self-care (01) ==
LOC: ANHED 16:56 → ANH3MED 17:30
PROVIDERS: Physician Assistant; Admitting Provider Internal Medicine; Emergency Provider Emergency Medicine; PCP Internal Medicine; Visit Provider Family Medicine
DX: R41.82 Altered mental status, unspecified (principal); R53.1 Weakness; I71.2 Thoracic aortic aneurysm, without rupture; I35.0 Nonrheumatic aortic (valve) stenosis; I34.0 Nonrheumatic mitral (valve) insufficiency; I10 Essential (primary) hypertension; I25.10 Atherosclerotic heart disease of native coronary artery without angina pectoris; I73.9 Peripheral vascular disease, unspecified; E78.5 Hyperlipidemia, unspecified; F17.210 Nicotine dependence, cigarettes, uncomplicated; G47.33 Obstructive sleep apnea (adult) (pediatric); R26.81 Unsteadiness on feet; W19.XXXA Unspecified fall, initial encounter; Z95.1 Presence of aortocoronary bypass graft; Z86.73 Personal history of transient ischemic attack (TIA), and cerebral infarction without residual deficits; Z85.46 Personal history of malignant neoplasm of prostate; Z90.79 Acquired absence of other genital organ(s); Z79.82 Long term (current) use of aspirin; Z79.899 Other long term (current) drug therapy
CPT/HCPCS: 36415; 70496; 70498; 71045; 72125; 80048; 80053; 80061; 82607; 82746; 82948; 83735; 84443; 84484; 85025; 85027; 85610; 85730; 93005; 96372; 96374; 97161; 97165; 99285; A9270; C8929; G0378; J3420; Q9957; Q9967

== ENCOUNTER 2020-06-29 08:18 | Outpatient (CLI) | payer MEDICARE, SELFPAY ==
--- NOTE | ~2020-06-29 | US_ITS ---
EXAMINATION: US art doppler w press LE BI DATE: 06/29/2020 09:16 INDICATION: Peripheral vascular disease. Prior arterial stenting in the right lower limb. TECHNIQUE: Segmental pressures and plethysmographic and Doppler waveforms of the brachial and lower e xtremity arteries were obtained. COMPARISON: None. FINDINGS: Right and left brachial artery pressures of 156 mm Hg and 151 mm Hg, respectively, are concordant (no rmal difference <= 30 mmHg). The right ankle-brachial index (BRINDA) is 1.00 (normal >= 0.9-1). Arterial waveforms are biphasic with brisk systolic upstrokes throughout the arteries of the right lower limb. The left BRINDA is 0.95. Arterial waveforms are biphasic with brisk systolic upstrokes throughout the le ft lower limb.. IMPRESSION: 1. Normal right BRINDA and borderline but still normal left BRINDA. No significant occlusive disease. Reviewed, dictated and finalized at location A. RMATICA ARCHITECT IMPRESSION: 1. Normal right BRINDA and borderline but still normal left BRINDA. No significant oc clusive disease.
== END 2020-06-29 08:19 | disposition home or self-care (01) ==
LOC: ANHIMG 08:23
PROVIDERS: Family Provider Internal Medicine; PCP Internal Medicine; Visit Provider Internal Medicine Cardiovascular Disease
DX: I73.9 Peripheral vascular disease, unspecified (principal)
CPT/HCPCS: 93923

== ENCOUNTER 2020-07-27 07:30 | Outpatient (RCR) | payer MEDICARE, SELFPAY ==
--- NOTE | 2020-06-14 10:49 | PTOPEVAL ---
Thank you for referring Jessa Goetz to [facility].? The patient is scheduled to be seen for therapy? 1 x/week for 4-6 weeks. Please review, sign, date and return this plan of care JUDAH. I agree with and certify that the following plan of care is medically necessary. Referring Physician Date Attending Provider: Deshaun Santos DO *PT Outpatient Evaluation Start: 06/14/20 Therapy Assessment Status Assessment Status Evaluation Evaluation Information Problem Diagnosis leg weakness Cause medication per pt Additional Evaluation Detail 1 fall 2 months ago, Mar 2020. He went to the hospital and was admitted for 3 days. He had surgery 04/22/20 for heart valve replacement. He does not feel the surgery made him weaker. He has cut down on his smoking, but he is not going to quit. Subjective Information He feels his leg weakness is Query Text:As Reported By Patient/ due to his BP medication. He Family also c/o limitations with walking longer distances. He does not perform a regular walking program or exercise program. 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 He spends a lot of time on his feet, walking. He denies difficulty performing work activities. Denies problems with performing household activities. He reports he is able to perform required lifting task for work. He reports having feeling of decreased balance outside on soft surfaces. Pain Assessment Timing of Pain Assessment Timing of Pain Assessment Assessment Self Report Self Report Pain Level 0 Pain Score Pain Score 0: Self Report Lower Extremity Muscle Strength Testing Hip Strength Bilateral Hip Flexion Strength 5 Normal Hip Extension Strength 4- Good - Hip Abduction Strength 3 Fair Knee Strength Bilateral Knee Flexion Strength 4- Good - Knee Extension Strength 4+ Good + Ankle Strength Bilateral Ankle Dorsiflexion Strength 5 Normal Ankle Plantarflexion Strength 3 Fair Ankle Eversion Strength 5 Normal Ankle Inversion Strength 5 Normal Ankle Strength Comments divina heel r
--- NOTE | 2020-06-28 07:43 | PCPTNOTE ---
Patient called & cancelled scheduled appointment this date due to weather.
--- NOTE | 2020-07-12 10:55 | PTOPEVAL ---
Thank you for referring Jessa Goetz to [facility].? Pt is progressing towards his therapy goals with improved balance, functional mobility and endurance. The patient is scheduled to be seen for therapy 1 x/week for 3 weeks. Please review, sign, date and return this plan of care JUDAH. I agree with and certify that the following plan of care is medically necessary. Referring Physician Date Attending Provider: Deshaun Santos, DO Physical Therapy Progress Note Diagnosis leg weakness Cause medication per pt Additional Evaluation Detail 1 fall 2 months ago, Mar 2020. He went to the hospital and was admitted for 3 days. He had surgery 04/22/20 for heart valve replacement. He does not feel the surgery made him weaker. He has cut down on his smoking, but he is not going to quit. Subjective Information He does feel like his legs are Query Text:As Reported By Patient/ stronger than when he started Family therapy. He has not tried any distance walking. He has been performing his HEP consistently. 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 He spends alot of time on his feet, walking. He denies difficulty performing work activities. He has not had to be outside on soft uneven surfaces since the start of therapy. Pain Assessment Self Report Pain Level 0 Lower Extremity Muscle Strength Testing Bilateral Hip Flexion Strength 5 Normal Hip Extension Strength 4- Good - Hip Abduction Strength 3 Fair Knee Strength Bilateral Knee Flexion Strength 4- Good - Knee Extension Strength 5 Normal Balance Assessment Mayer Balance Assessment MAYER Balance Evaluation Total Score (53/56 points) Time Up Go (TUG) Timed Up and Go Test (TUG) (Seconds) 15 Assistive Devices None 5 Time Sit to Stand Time in Seconds 16 5 Time Sit to Stand Comments without use of UE with motion, Gait Assessment Ambulation Assistive Devices None Ambulation Ability Independent Additional Ambulation Comments stepping over 2 to 6 obstacles and walking on/off soft surfaces without LOB Gait Pattern Assessment Gait Pattern Shuffled Gait Gait Pattern Observed Decreased Stride Length - Left
--- NOTE | 2020-08-03 09:50 | PCPTNOTE ---
Patient called & cancelled scheduled appointment this date due to his appointment on 08/05/20, no reason provided.
--- NOTE | 2020-08-12 07:55 | PCPTNOTE ---
Patient did not show up for scheduled appointment this date. Pt thought his therapy visit was for next week. He is to have a MRI this week due to MD thinking there is a pinched nerve. He will call after speaking with the doctor.
--- NOTE | 2020-08-30 10:05 | PCPTNOTE ---
Admitting Provider: Attending Provider: Deshaun Santos DO Patient:Jessa Goetz Date of :1950 Discharge summary Patient has not returned for any further treatments since 07/27/2020, therefore he will be discharged at this time. Patient?s initial visit was on 06/14/2020 09:30 and he had a total of 6 visits. The goals have been met at this time. Thank you for referring this patient to [facility]. Please review, sign, date and return this discharge summary JUDAH. I have been updated about the patient's current status and I agree with discharge from the above service at this time. Referring Physician Date
== END 2020-08-30 10:30 | disposition home or self-care (01) ==
LOC: ANHPT 07:30
PROVIDERS: Family Provider Internal Medicine; PCP Internal Medicine; Visit Provider Internal Medicine
DX: R26.81 Unsteadiness on feet (principal)
CPT/HCPCS: 97110; 97112; 97163; 97530

== ENCOUNTER 2020-08-25 13:19 | Outpatient (CLI) | payer MEDICARE, SELFPAY ==
--- NOTE | ~2020-08-25 | MR_ITS ---
EXAMINATION: MR lumbar spine wo con EXAM DATE: 08/25/2020 14:35 INDICATION: R26.81 - Unsteadiness on feet . Balance issues. TECHNIQUE: Multi-sequential, multiplanar MR images of the lumbar spine were obtained without contrast . Sagittal T1, T2, T2 fat saturation images. Axial T2 weighted images. There is no prior study for comparison. FINDINGS: Incidental note made of lower abdominal aortic aneurysm up to 4.0 cm. Mild to moderate disc disease L2-3, L3-4 and L5-S1, mild at L4-5. There is 2 mm retrolisthesis L2 on L3, 3 mm anterolisthe sis L4 on L5 without spondylolysis. The conus medullaris terminates at the L1/2 level and has normal signal intensity and morphology. There are no suspicious marrow signal abnormalities. Paraspinal sof t tissue is unremarkable. Level by level evaluation: T12-L1: Disc does not extend beyond the endplate margin. Facet arthropathy: None. Neural foraminal stenosis: No stenosis. Central canal stenosis: No stenosis. L1-L2: Disc does not extend beyond the endplate margin. Facet arthropathy: Minimal. Neural foraminal stenosis: No stenosis. Central canal stenosis: No stenosis. L2-L3: There is a mild diffuse disc bulge. Facet arthropathy: Mild. Neural foraminal stenosis: Mild bilateral. Central canal stenosis: Mild. L3-L4: There is a mild to moderate diffuse disc bulge. Facet arthropathy: Mild to moderate. Neural foraminal stenosis: Mild to moderate bilateral. Central canal stenosis: Mild to moderate. L4-L5: There is a mild to moderate diffuse disc bulge. Facet arthropathy: Moderate to severe . Ligamentum flavum enlargement. Neural foraminal stenosis: Mild to moderate bilateral, right greater than left. Central canal stenosis: Moderate. L5-S1: There is a mild to moderate diffuse disc bulge. Facet arthropathy: Moderate. Neural foraminal stenosis: Moderate to severe left, moderate right. Central canal stenosis: Mild. IMPRESSION: 1. L4-5 grade 1 anterolisthesis, advanced facet arthropathy and moderate central canal stenosis. 2. Neural foramen most narrowed L5-S1. Reviewed, dictated and finalized at location A. IMPRESSION: 1. L4-5 grade 1 anterolisthesis, advanced facet arthropathy and moderate centr al canal stenosis. 2. Neural foramen most narrowed L5-S1.
== END 2020-08-25 13:20 | disposition home or self-care (01) ==
LOC: ANHIMG 13:26
PROVIDERS: PCP Internal Medicine; Visit Provider Internal Medicine
DX: R26.81 Unsteadiness on feet (principal); I71.4 Abdominal aortic aneurysm, without rupture; M47.817 Spondylosis without myelopathy or radiculopathy, lumbosacral region; M48.07 Spinal stenosis, lumbosacral region
CPT/HCPCS: 72148

== ENCOUNTER 2021-08-09 14:50 | Outpatient (CLI) | payer MEDICARE, SELFPAY ==
--- NOTE | ~2021-08-09 | CT_ITS ---
EXAMINATION:CT lung screening DATE: 08/09/2021 15:19 INDICATION: Tobacco use. Current smoker with 55 pack year history. TECHNIQUE: Computed tomography (CT) of the chest was performed without intravenous contrast. Automate d exposure control and iterative reconstruction technique were employed. The dose-length product (DLP ) was 131.54 mGy-cm. COMPARISON: Chest CT 03/20/2017 FINDINGS: There is mild atelectasis in the lower lobes. There is a stable 3 mm nodule in left lower l obe. There is a stable 4 mm nodule in right middle lobe. There is a stable 3 mm nodule in right upper lobe. There are 2 mm and 3 mm nodules in right upper lobe. No pleural effusion. There is left atrial enlargement of the heart. There are changes of aortic valve replacement. There are coronary artery c alcifications. There are changes of coronary artery bypass grafting. There is a 3 mm stone in right k idney. There is moderate thoracic spondylosis. IMPRESSION: 1. Lung-RADS category 2: Benign appearance or behavior. Continue annual screening with noncontrast lo w-dose chest CT in 12 months. Reviewed, dictated and finalized at location A. IMPRESSION: 1. Lung-RADS category 2: Benign appearance or behavior. Continue annual screeni ng with noncontrast low-dose chest CT in 12 months.
== END 2021-08-09 14:51 | disposition home or self-care (01) ==
PROVIDERS: PCP Internal Medicine; Visit Provider Internal Medicine
DX: Z12.2 Encounter for screening for malignant neoplasm of respiratory organs (principal); Z87.891 Personal history of nicotine dependence
CPT/HCPCS: 71271

== ENCOUNTER 2021-09-30 08:34 | Outpatient (CLI) | payer MEDICARE, SELFPAY ==
[2021-09-30 10:03] LABS: Alanine Aminotransferase 14 U/L (6-50); Albumin Level 4.4 g/dL (3.5-5.1); Alkaline Phosphatase 67 U/L (38-126); Anion Gap 9 mmol/L (8-16); Aspartate Amino Transferase 22 U/L (17-59); Bilirubin,Total 0.7 mg/dL (0.2-1.3); Blood Urea Nitrogen 15 mg/dL (9-20); Calcium 8.7 mg/dL (8.4-10.2); Carbon Dioxide 26 mmol/L (22-30); Chloride 103 mmol/L (98-107); Cholesterol 192 mg/dL (0-200); Estimated Glomerular Filt Rate 60; Glucose 96 mg/dL (65-110); HDL Direct 55 mg/dL; Sodium 138 mmol/L (137-145); Triglycerides 102 mg/dL (<150)
[2021-09-30 10:14] LABS: LDL Cholesterol Direct 95 mg/dL
[2021-09-30 10:28] LABS: Prostate Specific Antigen < 0.1 ng/mL (< OR = 4.0)
== END 2021-09-30 08:35 | disposition home or self-care (01) ==
LOC: ANHLAB 08:36
PROVIDERS: PCP Internal Medicine; Visit Provider Internal Medicine
DX: I10 Essential (primary) hypertension (principal); Z79.899 Other long term (current) drug therapy; E78.5 Hyperlipidemia, unspecified; Z12.5 Encounter for screening for malignant neoplasm of prostate
CPT/HCPCS: 36415; 80053; 80061; 84153; G0103

== ENCOUNTER 2021-11-02 12:32 | Outpatient (CLI) | payer MEDICARE, SELFPAY ==
--- NOTE | ~2021-11-02 | US_ITS ---
EXAMINATION: US aorta [facility] DATE: 11/02/2021 13:14 INDICATION: Abdominal aortic aneurysm screening TECHNIQUE: Grayscale, color Doppler, and pulsed Doppler images of the aorta and common iliac arteries were obtained. COMPARISON: Lumbar spine MR dated 08/25/2020 FINDINGS: The proximal aorta measures 2.9 cm. The mid aorta measures 2.7 cm. Fusiform infrarenal abdominal aort ic aneurysm which measures up to 4.0 cm in maximal diameter. The right common iliac artery measures 1 .9 cm. The left common iliac artery measures 1.1 cm. IMPRESSION: 1. 4.0 cm infrarenal abdominal aortic aneurysm without significant change since MRI dated 08/25/2020. Reviewed, dictated and finalized at location B.
--- NOTE | ~2021-11-02 | US_ITS ---
EXAMINATION: US carotid duplex BI DATE: 11/02/2021 13:18 INDICATION: Bilateral carotid bruits TECHNIQUE: Grayscale, color Doppler, and pulsed Doppler images of the cervical carotid arteries were obtained. The degree of vessel stenosis is placed in one of the following categories: normal, <50%, 5 0-69%, >=70% but less than near-occlusion, near-occlusion, or total occlusion. Note that percent sten osis relative to normal distal artery lumen diameter is indirectly measured from velocity measurement s as described by Pk, et al. Radiology 2003; 229:340-346. COMPARISON: None. FINDINGS: RIGHT: The right common carotid artery (CCA) peak systolic velocity (PSV) is 69 cm/s. The right internal car otid artery (ICA) PSV is 85 cm/s. The right ICA end-diastolic velocity (EDV) is 23 cm/s. The right IC A/CCA PSV ratio is 1.3. Grayscale and color Doppler images yield an estimate of <50% diameter reducti on from plaque in the ICA. The external carotid artery (ECA) PSV is 119 cm/s. There is antegrade flow in the right vertebral artery. LEFT: The left CCA PSV is 59 cm/s. The left ICA PSV is 340 cm/s. The left ICA EDV is 116 cm/s. The left ICA /CCA PSV ratio is 8. Grayscale and color Doppler images yield an estimate of >=70% (but less than navya r occlusion) diameter reduction from plaque in the ICA. The ECA PSV is 325 cm/s. There is antegrade f low in the left vertebral artery. IMPRESSION: 1. <50% stenosis in the right internal carotid artery. 2. >=70% (but less than near occlusion) stenosis in the left internal carotid artery. Reviewed, dictated and finalized at location B. IMPRESSION: 1. <50% stenosis in the right internal carotid artery. 2. >=70% (but less than near occlusion) stenosis in the left internal carotid a rtery.
== END 2021-11-02 12:33 | disposition home or self-care (01) ==
PROVIDERS: PCP Internal Medicine; Visit Provider Internal Medicine Cardiovascular Disease
DX: Z13.6 Encounter for screening for cardiovascular disorders (principal); I71.4 Abdominal aortic aneurysm, without rupture; I65.23 Occlusion and stenosis of bilateral carotid arteries; R09.89 Other specified symptoms and signs involving the circulatory and respiratory systems; Z72.0 Tobacco use
CPT/HCPCS: 76706; 93880

== ENCOUNTER 2022-04-04 09:41 | Outpatient (CLI) | payer MEDICARE, SELFPAY ==
[2022-04-04 10:25] LABS: LDL Cholesterol Direct 172 mg/dL
[2022-04-04 10:26] LABS: Alanine Aminotransferase 17 U/L (6-50); Albumin Level 4.4 g/dL (3.5-5.1); Alkaline Phosphatase 64 U/L (38-126); Anion Gap 11 mmol/L (8-16); Aspartate Amino Transferase 22 U/L (17-59); Bilirubin,Total 0.8 mg/dL (0.2-1.3); Blood Urea Nitrogen 19 mg/dL (9-20); Calcium 9.1 mg/dL (8.4-10.2); Carbon Dioxide 27 mmol/L (22-30); Chloride 101 mmol/L (98-107); Estimated Glomerular Filt Rate 60; Glucose 105 mg/dL (65-110); HDL Direct 64 mg/dL; Potassium 4.5 mmol/L (3.4-5.0); Sodium 139 mmol/L (137-145); Triglycerides 105 mg/dL (<150)
[2022-04-04 12:38] LABS: Cholesterol 326 mg/dL (0-200)
== END 2022-04-04 09:42 | disposition home or self-care (01) ==
LOC: ANHLAB 09:42
PROVIDERS: PCP Internal Medicine; Visit Provider Internal Medicine
DX: E78.5 Hyperlipidemia, unspecified (principal); Z79.899 Other long term (current) drug therapy; I10 Essential (primary) hypertension
CPT/HCPCS: 36415; 80053; 80061

== ENCOUNTER 2022-12-22 15:48 | Outpatient (CLI) | payer MEDICARE, SELFPAY ==
--- NOTE | ~2022-12-22 | US_ITS ---
EXAMINATION: US thyroid DATE: 12/22/2022 16:15 INDICATION: Thyroid nodule. TECHNIQUE: Multiple ultrasound images of the thyroid were obtained. COMPARISON: None. FINDINGS: The right thyroid lobe measures 4.1 x 2.5 x 2.3 cm. The left thyroid lobe measures 4.7 x 2.0 x 1.4 c m. In the right thyroid lobe, there is a 13 mm solid, hypoechoic, wider than tall nodule with smooth margin without echogenic foci (TI-RADS TR4). In the right thyroid lobe, there is a 13 mm solid, hypo echoic, wider than tall nodule with ill-defined margin without echogenic foci (TR4). IMPRESSION: 1. Thyroid nodules. Thyroid ultrasound is recommended in one year. Reviewed, dictated and finalized at location A.
== END 2022-12-22 15:49 | disposition home or self-care (01) ==
PROVIDERS: PCP Family Medicine; Visit Provider Physician Assistant
DX: E04.2 Nontoxic multinodular goiter (principal)
CPT/HCPCS: 76536